=== PATIENT | female | born 2000 | race Caucasian/White ===

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

== ENCOUNTER 2020-01-28 11:41 | Emergency (ER) | payer BC ==
--- NOTE | 2020-01-28 11:54 | ED ---
Headache HPI - General Chief Complaint: Headache Stated Complaint: headache Time Seen by Provider: 01/28/20 11:51 Mode of arrival: ambulatory Limitations: no limitations - History of Present Illness Initial Comments: 19-year-old female history of headaches presenting to the emergency room with a chief complaint of headache. Patient states about 4 months ago she fell, and injured her head and suffering loss of consciousness during the incident. Patient states ever since she has been having intermittent migraine headaches. Although, for the past week states that it has been constant. Reports the pain is located in bilateral temples without any radiation. She does report photophobia but denies an nausea or vomiting. Denies any visual disturbances, chest pain, shortness of breath, one-sided weakness or paresthesias. She states the pain is currently about a 6 and not the worst headache of her life. This was a gradual onset headache. States that she went to Dr. Castillo's office this morning and she was advised to go to the emergency department for evaluation. - Related Data Home Medications Medication Instructions Recorded Confirmed Butalb/APAP/Caff 50-325-40Mg 1 tab PO DAILY PRN 01/28/20 01/28/20 [Fioricet 50-325-40] Fluticasone Nasal [place] [Flonase 1 spr EA NOSTRIL DAILY PRN 01/28/20 01/28/20 Nasal [place]] LORazepam [Ativan] 0.5 mg PO BID 01/28/20 01/28/20 Levomilnacipran HCl [Fetzima] 40 mg PO DAILY 01/28/20 01/28/20 Allergies Allergy/AdvReac Type Severity Reaction Status Date / Time No Known Allergies Allergy Verified 01/28/20 12:49 Review of Systems ROS Statement: Those systems with pertinent positive or pertinent negative responses have been documented in the HPI. ROS Other: All systems not noted in ROS Statement are negative. Past Medical History Past Medical History: Deep Vein Thrombosis (DVT) Additional Past Medical History / Comment(s): PE 2018 History of Any Multi-Drug Resistant Organisms: None Reported Past Surgical History: Adenoidectomy, Ear Surgery, Tonsillectomy Past Psychological History: Anxiety, Bipolar, Depression Smoking Status: Never smoker Past Alcohol Use History: Occasional Past Drug Use History: Marijuana General Exam Limitations: no limitations General appearance: alert, in no apparent distress Head exam: Present: atraumatic, normocephalic, normal inspection Eye exam: Present: normal appearance, PERRL, EOMI Pupils: Present: normal accommodation ENT exam: Present: normal exam, normal oropharynx, mucous membranes moist, TM's normal bilaterally, normal external ear exam Neck exam: Present: normal inspection, full ROM. Absent: tenderness Respiratory exam: Present: normal lung sounds bilaterally. Absent: respiratory distress, wheezes, rales Cardiovascular Exam: Present: regular rate, normal rhythm, normal heart sounds. Absent: systolic murmur, diastolic murmur GI/Abdominal exam: Present: soft. Absent: distended, tenderness, guarding, rebound Extremities exam: Present: normal inspection, full ROM, normal capillary refill. Absent: tenderness, pedal edema, joint swelling, calf tenderness Back exam: Present: normal inspection, full ROM. Absent: tenderness, CVA tenderness (R), CVA tenderness (L) Neurological exam: Present: alert, oriented X3, CN II-XII intact, normal gait Psychiatric exam: Present: normal affect, normal mood Skin exam: Present: warm, dry, intact, normal color Course Vital Signs 01/28/20 11:42 Temperature 98.2 F Pulse Rate 107 H Respiratory 18 Rate Blood Pressure 135/95 O2 Sat by Pulse 99 Oximetry Medical Decision Making - Medical Decision Making 19-year-old female presenting to emergency Department with a chief complaint of a headache. On physical examination, patient is neurologically intact. No focal neural deficits. CBC CMP unremarkable. Patient is not . CT of the brain reveals no signs of acute fracture or dislocations, intracranial hemorrhage or any space-occupying lesions. There is a low-lying cerebellar tonsils, cannot exclude underlying Chiari type I malformation. Nonemergent MRI for follow-up advised. I gave the patient to contact for neurology follow-up. Strict return parameters were thoroughly discussed with patient is an attending agreeable. Case discussed with physician. - Lab Data Result diagrams: 01/28/20 12:21 01/28/20 12: Lab Results 01/28/20 01/28/20 01/28/20 Range/Units 12:21 12:21 12:21 WBC 10.1 (4.0-11.0) k/uL RBC 4.99 (3.80-5.40) m/uL Hgb 15.8 (11.4-16.0) gm/dL Hct 46.1 H (34.0-46.0) % MCV 92.4 (80.0-100.0) fL MCH 31.6 (25.0-35.0) pg MCHC 34.2 (31.0-37.0) g/dL RDW 12.6 (11.5-15.5) % Plt Count 255 (150-450) k/uL MPV 7.2 Neutrophils % 54 % Lymphocytes % 31 % Monocytes % 3 % Eosinophils % 11 % Basophils % 1 % Neutrophils # 5.4 (1.3-7.7) k/uL Lymphocytes # 3.1 (1.0-4.8) k/uL Monocytes # 0.3 (0-1.0) k/uL Eosinophils # 1.1 H (0-0.7) k/uL Basophils # 0.1 (0-0.2) k/uL Sodium 137 (137-145) mmol/L Potassium 4.1 (3.5-5.1) mmol/L Chloride 104 (98-107) mmol/L Carbon Dioxide 29 (22-30) mmol/L Anion Gap 4 mmol/L BUN 16 (7-17) mg/dL Creatinine 0.68 (0.52-1.04) mg/dL Est GFR (CKD-EPI)AfAm >90 (>60 ml/min/1.73 sqM) Est GFR (CKD-EPI)NonAf >90 (>60 ml/min/1.73 sqM) Glucose 93 (74-99) mg/dL Calcium 9.3 (8.4-10.2) mg/dL Total Bilirubin 0.7 (0.2-1.3) mg/dL AST 21 (14-36) U/L ALT 19 (4-34) U/L Alkaline Phosphatase 51 (38-126) U/L Total Protein 6.8 (6.3-8.2) g/dL Albumin 4.2 (3.5-5.0) g/dL Urine HCG, Qual Not Detected (Not Detectd) Disposition Clinical Impression: Headache Disposition: HOME SELF-CARE Condition: Stable Instructions (If sedation given, give patient instructions): Acute Headache (ED) Additional Instructions: Follow-up with a neurologist. Return to emergency department if symptoms worsen. Is patient prescribed a controlled substance at d/c from ED?: No Referrals: Moncho Castillo MD [Primary Care Provider] - 1-2 days Sajan De Guzman MD [STAFF PHYSICIAN] - 1-2 days Time of Disposition: 13:39
[2020-01-28] MEDS ORDERED: KETOROLAC 15 MG/ML 1 ML VIAL IVP STA (12:13)
[2020-01-28] MEDS ORDERED: SODIUM CHLORIDE 0.9% 500 ML 500 ML IV STA (12:13)
[2020-01-28 12:40] LABS: Basophils # (A) 0.1 k/uL (0-0.2); Basophils % (A) 1 %; Eosinophils # (A) 1.1 k/uL (0-0.7); Eosinophils % (A) 11 %; HCT 46.1 % (34.0-46.0); HGB 15.8 gm/dL (11.4-16.0); Lymphocytes # (A) 3.1 k/uL (1.0-4.8); Lymphocytes % (A) 31 %; MCH 31.6 pg (25.0-35.0); MCHC 34.2 g/dL (31.0-37.0); MCV 92.4 fL (80.0-100.0); Mean Platelet Volume 7.2; Monocytes # (A) 0.3 k/uL (0-1.0); Monocytes % (A) 3 %; Neutrophils # (A) 5.4 k/uL (1.3-7.7); Neutrophils % (A) 54 %; Platelet Count 255 k/uL (150-450); RBC 4.99 m/uL (3.80-5.40); RDW 12.6 % (11.5-15.5); WBC 10.1 k/uL (4.0-11.0)
[2020-01-28 12:49] LABS: ALT 19 U/L (4-34); AST 21 U/L (14-36); African American GFR (CKD) >90 (>60 ml/min/1.73 sqM); Albumin 4.2 g/dL (3.5-5.0); Alkaline Phosphatase 51 U/L (38-126); Anion Gap 4 mmol/L; Blood Urea Nitrogen 16 mg/dL (7-17); Calcium 9.3 mg/dL (8.4-10.2); Carbon Dioxide 29 mmol/L (22-30); Chloride 104 mmol/L (98-107); Glucose 93 mg/dL (74-99); Non-African American GFR(CKD) >90 (>60 ml/min/1.73 sqM); Potassium 4.1 mmol/L (3.5-5.1); Sodium 137 mmol/L (137-145); Total Bilirubin 0.7 mg/dL (0.2-1.3); Total Protein 6.8 g/dL (6.3-8.2)
--- NOTE | 2020-01-28 13:34 | CT ---
EXAMINATION TYPE: CT brain alejandroine wo con DATE OF EXAM: 01/28/2020 COMPARISON: NONE HISTORY: Fall, head injury and neck pain. CT DLP: 1032.2 mGycm. Automated Exposure Control for Dose Reduction was Utilized. TECHNIQUE: CT scan of the head and cervical spine are performed without contrast. FINDINGS: There is no acute intracranial hemorrhage or midline shift identified. The ventricles an d sulci are within normal limits in size. May-white matter differentiation is maintained. Partial vi sualization of low-lying cerebellar tonsils. The calvarium is intact. The globes are intact and the v isualized sinuses are clear. Cervical spine is visualized in its entirety from C1 through upper thoracic levels and demonstrates s traightened alignment without evidence of acute fracture or dislocation. Prevertebral soft tissue ap pears within normal limits. The C1-C2 articulation is within normal limits on the coronal images. V ertebral body heights and disc space heights are maintained. Spinal canal is preserved. Thyroid gland is within normal limits. Lung apices are clear. Low-lying cerebellar tonsils seen better on brain CT . IMPRESSION: 1. There is no acute fracture or dislocation evident in the cervical spine. 2. No acute intracranial hemorrhage or midline shift is seen. Low-lying cerebellar tonsils, cannot exclude underlying Chiari type I malformation. Nonemergent MRI f ollow-up is advised.
[2020-01-28 14:03] VITALS: BP 121/74; PULSE 78; RESP 16; TEMP 97.8
== END 2020-01-28 14:02 | disposition home or self-care (01) ==
LOC: EC 11:41
DX: R51.9 Headache, unspecified (principal); F41.9 Anxiety disorder, unspecified; F31.9 Bipolar disorder, unspecified; Z79.899 Other long term (current) drug therapy; Z90.89 Acquired absence of other organs
CPT/HCPCS: 36415; 80053; 85025; 81025; 72125; 70450; 99284; 96374; 96361; J1885

== ENCOUNTER → 2020-02-22 | Outpatient (CLI) | payer BC ==
--- NOTE | 2020-02-22 15:31 | XR ---
EXAMINATION TYPE: XR chest 2V DATE OF EXAM: 02/22/2020 COMPARISON: Chest x-ray October 19, 2019 HISTORY: Cough and congestion. Acute bronchitis. TECHNIQUE: Frontal and lateral views of the chest are obtained. FINDINGS: There is no focal air space opacity, pleural effusion, or pneumothorax seen. The cardiac silhouette size is within normal limits. The osseous structures are intact. IMPRESSION: No acute pulmonary process. No significant change from prior.
== END | disposition home or self-care (01) ==
LOC: RADXRMAIN 15:07
PROVIDERS: ATTEND Nurse Practitioner
DX: J20.9 Acute bronchitis, unspecified (principal)
CPT/HCPCS: 71046

== ENCOUNTER 2020-06-14 00:11 | Emergency (ER) | payer BC ==
[2020-06-14 00:18] VITALS: TEMP 97.7
[2020-06-14] MEDS ORDERED: SODIUM CHLORIDE 0.9% 1,000 ML IV ONE (00:34)
--- NOTE | 2020-06-14 00:43 | ED ---
Syncope HPI - General Chief Complaint: Syncope Stated Complaint: syncope Time Seen by Provider: 06/14/20 00:13 Source: patient, EMS Mode of arrival: EMS Limitations: no limitations - History of Present Illness Initial Comments: This patient is a 19-year-old woman brought to be evaluated after she had a brief episode of passing out. Patient had been with friends. She did have a small amount to drink. She also had smoked some marijuana and then she briefly passed out, estimated be seconds to a minute. Patient did have lost urinary continence but no tonic-clonic activity reported. It does not sound as if there was a postictal episode. Patient states she feels back to baseline now. She did have some brief lightheadedness just prior. MD Complaint: loss of consciousness -: minutes(s) Prodromal Symptoms: lightheaded Description of Event: incontinence -: second(s) Witnessed: yes - by bystander Injuries Sustained Associated with Event: None Current Symptoms: none Context: alcohol use, illicit drug use Treatments Prior to Arrival: none - Related Data Home Medications Medication Instructions Recorded Confirmed Butalb/APAP/Caff 50-325-40Mg 1 tab PO DAILY PRN 01/28/20 01/28/20 [Fioricet 50-325-40] Fluticasone Nasal [place] [Flonase 1 spr EA NOSTRIL DAILY PRN 01/28/20 01/28/20 Nasal [place]] LORazepam [Ativan] 0.5 mg PO BID 01/28/20 01/28/20 Levomilnacipran HCl [Fetzima] 40 mg PO DAILY 01/28/20 01/28/20 Previous Rx's Medication Instructions Recorded Sulfamethox-Tmp 800-160Mg [Bactrim 1 each PO Q12HR #6 tab 06/14/20 Ds] Allergies Allergy/AdvReac Type Severity Reaction Status Date / Time No Known Allergies Allergy Verified 01/28/20 12:49 Review of Systems ROS Statement: Those systems with pertinent positive or pertinent negative responses have been documented in the HPI. ROS Other: All systems not noted in ROS Statement are negative. Constitutional: Denies: fever, chills Eyes: Denies: vision change Respiratory: Denies: cough, dyspnea, wheezes Cardiovascular: Reports: syncope. Denies: chest pain, palpitations, orthopnea, edema Gastrointestinal: Denies: abdominal pain, nausea, vomiting, diarrhea Genitourinary: Denies: dysuria, frequency, hematuria Musculoskeletal: Denies: back pain Skin: Denies: rash Neurological: Denies: headache, weakness, numbness, paresthesias, confusion Past Medical History Past Medical History: Deep Vein Thrombosis (DVT) Additional Past Medical History / Comment(s): PE 2017 History of Any Multi-Drug Resistant Organisms: None Reported Past Surgical History: Adenoidectomy, Ear Surgery, Tonsillectomy Past Psychological History: Anxiety, Bipolar, Depression Smoking Status: Never smoker Past Alcohol Use History: Occasional Past Drug Use History: Marijuana General Exam Limitations: no limitations General appearance: alert, in no apparent distress Head exam: Present: atraumatic, normocephalic Eye exam: Present: normal appearance. Absent: scleral icterus, conjunctival injection ENT exam: Present: normal oropharynx Neck exam: Present: normal inspection Respiratory exam: Present: normal lung sounds bilaterally. Absent: respiratory distress, wheezes, rales, rhonchi, stridor Cardiovascular Exam: Present: regular rate, normal rhythm, normal heart sounds. Absent: systolic murmur, diastolic murmur, rubs, gallop GI/Abdominal exam: Present: soft. Absent: distended, tenderness, guarding, rebound, rigid, mass Extremities exam: Present: normal inspection, normal capillary refill. Absent: pedal edema, calf tenderness Back exam: Present: normal inspection. Absent: CVA tenderness (R), CVA tenderness (L) Neurological exam: Present: alert, oriented X3, CN II-XII intact. Absent: motor sensory deficit Skin exam: Present: warm, dry, intact, normal color. Absent: rash Course Vital Signs 06/14/20 06/14/20 00:12 02:17 Temperature 97.7 F Pulse Rate 106 H 77 Respiratory 16 18 Rate Blood Pressure 130/74 112/71 O2 Sat by Pulse 100 98 Oximetry EKG Findings - EKG Results: EKG: interpreted by ERMD, sinus rhythm, normal axis, normal QRS, normal ST/T EKG shows: tachycardia (rate 105) Medical Decision Making - Lab Data Result diagrams: 06/14/20 00:48 06/14/20 00:48 Lab Results 06/14/20 06/14/20 06/14/20 Range/Units 00:48 00:48 00:48 WBC 9.5 (4.0-11.0) k/uL RBC 4.50 (3.80-5.40) m/uL Hgb 14.8 (11.4-16.0) gm/dL Hct 41.3 (34.0-46.0) % MCV 91.7 (80.0-100.0) fL MCH 32.8 (25.0-35.0) pg MCHC 35.8 (31.0-37.0) g/dL RDW 12.2 (11.5-15.5) % Plt Count 202 (150-450) k/uL MPV 7.9 Neutrophils % 63 % Lymphocytes % 28 % Monocytes % 3 % Eosinophils % 4 % Basophils % 1 % Neutrophils # 6.0 (1.3-7.7) k/uL Lymphocytes # 2.7 (1.0-4.8) k/uL Monocytes # 0.3 (0-1.0) k/uL Eosinophils # 0.3 (0-0.7) k/uL Basophils # 0.0 (0-0.2) k/uL D-Dimer <0.17 (<0.60) mg/L FEU Sodium 139 (137-145) mmol/L Potassium 3.9 (3.5-5.1) mmol/L Chloride 108 H (98-107) mmol/L Carbon Dioxide 23 (22-30) mmol/L Anion Gap 8 mmol/L BUN 16 (7-17) mg/dL Creatinine 0.80 (0.52-1.04) mg/dL Est GFR (CKD-EPI)AfAm >90 (>60 ml/min/1.73 sqM) Est GFR (CKD-EPI)NonAf >90 (>60 ml/min/1.73 sqM) Glucose 92 (74-99) mg/dL Calcium 10.0 (8.4-10.2) mg/dL Total Bilirubin 0.7 (0.2-1.3) mg/dL AST 19 (14-36) U/L ALT 16 (4-34) U/L Alkaline Phosphatase 51 (38-126) U/L Troponin I (0.000-0.034) ng/mL Total Protein 6.8 (6.3-8.2) g/dL Albumin 4.3 (3.5-5.0) g/dL Urine Color Urine Appearance (Clear) Urine pH (5.0-8.0) Ur Specific [place] (1.001-1.035) Urine Protein (Negative) Urine Glucose (UA) (Negative) Urine Ketones (Negative) Urine Blood (Negative) Urine Nitrite (Negative) Urine Bilirubin (Negative) Urine Urobilinogen (<2.0) mg/dL Ur Leukocyte Esterase (Negative) Urine RBC (0-5) /hpf Urine WBC (0-5) /hpf Urine WBC Clumps (None) /hpf Ur Squamous Epith Cells (0-4) /hpf Urine Bacteria (None) /hpf Urine Mucus (None) /hpf Urine HCG, Qual (Not Detectd) 06/14/20 06/14/20 06/14/20 Range/Units 00:48 01:18 01:18 WBC (4.0-11.0) k/uL RBC (3.80-5.40) m/uL Hgb (11.4-16.0) gm/dL Hct (34.0-46.0) % MCV (80.0-100.0) fL MCH (25.0-35.0) pg MCHC (31.0-37.0) g/dL RDW (11.5-15.5) % Plt Count (150-450) k/uL MPV Neutrophils % % Lymphocytes % % Monocytes % % Eosinophils % % Basophils % % Neutrophils # (1.3-7.7) k/uL Lymphocytes # (1.0-4.8) k/uL Monocytes # (0-1.0) k/uL Eosinophils # (0-0.7) k/uL Basophils # (0-0.2) k/uL D-Dimer (<0.60) mg/L FEU Sodium (137-145) mmol/L Potassium (3.5-5.1) mmol/L Chloride (98-107) mmol/L Carbon Dioxide (22-30) mmol/L Anion Gap mmol/L BUN (7-17) mg/dL Creatinine (0.52-1.04) mg/dL Est GFR (CKD-EPI)AfAm (>60 ml/min/1.73 sqM) Est GFR (CKD-EPI)NonAf (>60 ml/min/1.73 sqM) Glucose (74-99) mg/dL Calcium (8.4-10.2) mg/dL Total Bilirubin (0.2-1.3) mg/dL AST (14-36) U/L ALT (4-34) U/L Alkaline Phosphatase (38-126) U/L Troponin I <0.012 (0.000-0.034) ng/mL Total Protein (6.3-8.2) g/dL Albumin (3.5-5.0) g/dL Urine Color Light Yellow Urine Appearance Cloudy H (Clear) Urine pH 7.0 (5.0-8.0) Ur Specific [place] 1.006 (1.001-1.035) Urine Protein Negative (Negative) Urine Glucose (UA) Negative (Negative) Urine Ketones Trace H (Negative) Urine Blood Negative (Negative) Urine Nitrite Negative (Negative) Urine Bilirubin Negative (Negative) Urine Urobilinogen <2.0 (<2.0) mg/dL Ur Leukocyte Esterase Large H (Negative) Urine RBC 3 (0-5) /hpf Urine WBC 76 H (0-5) /hpf Urine WBC Clumps Few H (None) /hpf Ur Squamous Epith Cells 10 H (0-4) /hpf Urine Bacteria Rare H (None) /hpf Urine Mucus Rare H (None) /hpf Urine HCG, Qual Not Detected (Not Detectd) Disposition Clinical Impression: Syncope, Urinary tract infection Disposition: HOME SELF-CARE Condition: Good Instructions (If sedation given, give patient instructions): Urinary Tract Infection in Women (ED), Syncope (ED) Prescriptions: Sulfamethox-Tmp 800-160Mg [Bactrim Ds] 1 each PO Q12HR #6 tab Is patient prescribed a controlled substance at d/c from ED?: No Referrals: Moncho Castillo MD [Primary Care Provider] - 1-2 days
--- NOTE | 2020-06-14 01:05 | XR ---
EXAM: XR Chest, 1 View CLINICAL HISTORY: ITS.REASON XR Reason: syncope TECHNIQUE: Frontal view of the chest. COMPARISON: 02/22/2020 FINDINGS: Lungs: Unremarkable. No consolidation. Pleural space: Unremarkable. No pneumothorax. Heart: Unremarkable. No cardiomegaly. Mediastinum: Unremarkable. Bones/joints: Unremarkable. IMPRESSION: No evidence of acute cardiopulmonary disease.
[2020-06-14 01:09] LABS: Basophils % (A) 1 %; Eosinophils # (A) 0.3 k/uL (0-0.7); Eosinophils % (A) 4 %; HCT 41.3 % (34.0-46.0); HGB 14.8 gm/dL (11.4-16.0); Lymphocytes # (A) 2.7 k/uL (1.0-4.8); Lymphocytes % (A) 28 %; MCH 32.8 pg (25.0-35.0); MCHC 35.8 g/dL (31.0-37.0); MCV 91.7 fL (80.0-100.0); Mean Platelet Volume 7.9; Monocytes # (A) 0.3 k/uL (0-1.0); Monocytes % (A) 3 %; Neutrophils % (A) 63 %; Platelet Count 202 k/uL (150-450); RDW 12.2 % (11.5-15.5); WBC 9.5 k/uL (4.0-11.0)
[2020-06-14 01:20] LABS: ALT 16 U/L (4-34); AST 19 U/L (14-36); African American GFR (CKD) >90 (>60 ml/min/1.73 sqM); Albumin 4.3 g/dL (3.5-5.0); Alkaline Phosphatase 51 U/L (38-126); Anion Gap 8 mmol/L; Blood Urea Nitrogen 16 mg/dL (7-17); Carbon Dioxide 23 mmol/L (22-30); Chloride 108 mmol/L (98-107); Glucose 92 mg/dL (74-99); Non-African American GFR(CKD) >90 (>60 ml/min/1.73 sqM); Potassium 3.9 mmol/L (3.5-5.1); Sodium 139 mmol/L (137-145); Total Bilirubin 0.7 mg/dL (0.2-1.3); Total Protein 6.8 g/dL (6.3-8.2)
[2020-06-14 02:00] LABS: Appearance,Urine Cloudy (Clear); Bacteria,Urine Rare /hpf; Bilirubin,Urine Negative (Negative); Blood,Urine Negative (Negative); Color,Urine Light Yellow; Glucose,Urine (UA) Negative (Negative); Ketones,Urine Trace (Negative); Leukocyte Esterase,Urine Large (Negative); Mucus,Urine Rare /hpf; Nitrite,Urine Negative (Negative); Protein,Urine Negative (Negative); RBC,Urine 3 /hpf (0-5); Specific Gravity,Urine 1.006 (1.001-1.035); Squamous Epithelial Cell,Urine 10 /hpf (0-4); Urobilinogen,Urine <2.0 mg/dL (<2.0); WBC,Urine 76 /hpf (0-5)
[2020-06-14] MEDS ORDERED: SULFAMETHOX-TMP 800-160MG 1 EACH TAB PO STA (02:15)
[2020-06-14 02:30] VITALS: RESP 18
[2020-06-14 03:29] VITALS: BP 101/61; PULSE 98
== END 2020-06-14 03:29 | disposition home or self-care (01) ==
LOC: EC 00:11
DX: R55 Syncope and collapse (principal); N39.0 Urinary tract infection, site not specified; R42 Dizziness and giddiness; F41.9 Anxiety disorder, unspecified; F32.9 Major depressive disorder, single episode, unspecified; F12.90 Cannabis use, unspecified, uncomplicated; Z79.899 Other long term (current) drug therapy; Z86.711 Personal history of pulmonary embolism
CPT/HCPCS: 36415; 71045; 80053; 81001; 81025; 84484; 85025; 85379; 93005; 96360; 99284

== ENCOUNTER → 2021-05-16 | Outpatient (CLI) | payer BC ==
[2021-05-16 14:17] LABS: Basophils # (A) 0.04 X 10*3/uL (0.00-0.10); Basophils % (A) 0.6 %; Eosinophils # (A) 0.49 X 10*3/uL (0.04-0.35); Eosinophils % (A) 7.4 %; HGB 13.6 g/dL (12.0-15.0); Immature Grans, Automated 0.2 %; Lymphocytes # (A) 2.13 X 10*3/uL (0.90-5.00); Lymphocytes % (A) 32.2 %; MCH 31.3 pg (27.0-32.0); MCHC 33.2 g/dL (32.0-37.0); MCV 94.3 fL (80.0-97.0); Mean Platelet Volume 10.6 fL (9.5-12.2); Monocytes % (A) 4.5 %; NRBC Per 100 WBC 0 /100 WBCS (0.0-0.0); Neutrophils # (A) 3.65 X 10*3/uL (1.80-7.70); Neutrophils % (A) 55.1 %; Platelet Count 209 X 10*3/uL (140-440); RBC 4.35 X 10*6/uL (4.10-5.20); RDW 12.4 % (11.5-14.5); WBC 6.62 X 10*3/uL (4.50-10.00)
[2021-05-16 15:07] LABS: Erythrocyte Sedimentation Rate 1 mm/Hr (0-20)
[2021-05-16 17:17] LABS: ALT 23 U/L (8-44); AST 17 U/L (13-35); African American GFR (CKD) 127.8 (60.0-200.0); Albumin 4.3 g/dL (3.8-4.9); Albumin/Globulin Ratio 1.99 (1.60-3.17); Alkaline Phosphatase 49 U/L (41-126); Bilirubin, Conjugated <0.20 mg/dL (0.20-0.40); Blood Urea Nitrogen 16.7 mg/dL (9.0-27.0); Globulin 2.1 g/dL (1.6-3.3); Glucose 90 mg/dL (70-110); Non-African American GFR(CKD) 110.3 (60.0-200.0); Total Protein 6.4 g/dL (6.2-8.2); Uric Acid 4.6 mg/dL (2.9-7.7)
[2021-05-16 19:24] LABS: Rheumatoid Factor, Qnt <10 IU/mL (0-15)
[2021-05-16 19:32] LABS: Anti-DNA, DS unit <1.0 IU/mL; DNA Double-Stranded NEGATIVE (NEGATIVE)
== END | disposition home or self-care (01) ==
LOC: LABWHC1 08:53
DX: R53.81 Other malaise (principal); M25.50 Pain in unspecified joint; Z79.899 Other long term (current) drug therapy
CPT/HCPCS: 36415; 80076; 82565; 82947; 83036; 84146; 84443; 84520; 84550; 85025; 85652; 86038; 86225; 86431

== ENCOUNTER 2021-08-26 07:57 | Inpatient (IN) | payer BC ==
[2021-08-26] MEDS ORDERED: SODIUM CHLORIDE 0.9% 500 ML 500 ML IV STA (08:02)
--- NOTE | 2021-08-26 08:15 | ED ---
General Adult HPI - General Source: patient, RN notes reviewed, old records reviewed <Vivek Grijalva - Last Filed: 08/26/21 14:40> <Samantha Cedillo - Last Filed: 08/26/21 18:31> - General Stated complaint: overdose Time Seen by Provider: 08/26/21 08:00 - History of Present Illness Initial comments: This is a 21-year-old female presents emergency Department stating 7:00 this morning she took 30 of her antidepressant medications called Fetzima. Patient states she was trying to kill herself. Patient states then she had some aggressive should talk to her mother brought her mother called EMS and the patient was brought to the emergency department. Patient states she still is feeling suicidal. Patient denies any physical complaints. Patient denies abdominal pain patient denies any chest pain difficult breathing shortness of breath. Patient denies taking any other medications patient denies any alcohol. (Vivek Grijalva) - Related Data Home Medications Medication Instructions Recorded Confirmed ARIPiprazole [Abilify] 5 mg PO DAILY 08/26/21 08/26/21 LORazepam [Ativan] 1 mg PO DAILY 08/26/21 08/26/21 Levomilnacipran HCl [Fetzima] 20 mg PO DAILY 08/26/21 08/26/21 Topiramate [Topamax] 50 mg PO DIRECTED 08/26/21 08/26/21 Allergies Allergy/AdvReac Type Severity Reaction Status Date / Time No Known Allergies Allergy Verified 08/26/21 17:12 Review of Systems ROS Other: All systems not noted in ROS Statement are negative. <Vivek Grijalva - Last Filed: 08/26/21 14:40> ROS Other: All systems not noted in ROS Statement are negative. <Samantha Cedillo - Last Filed: 08/26/21 18:31> ROS Statement: Those systems with pertinent positive or pertinent negative responses have been documented in the HPI. Past Medical History Past Medical History: Deep Vein Thrombosis (DVT) Additional Past Medical History / Comment(s): PE 2018 History of Any Multi-Drug Resistant Organisms: None Reported Past Surgical History: Adenoidectomy, Ear Surgery, Tonsillectomy Past Psychological History: Anxiety, Bipolar, Depression Smoking Status: Never smoker Past Alcohol Use History: Occasional Past Drug Use History: Marijuana <Vivek Grijalva - Last Filed: 08/26/21 14:40> General Exam <Vivek Grijalva - Last Filed: 08/26/21 14:40> - General Exam Comments Initial Comments: GENERAL: Patient is well-developed and well-nourished. Patient is nontoxic and well- hydrated and is in no acute distress. ENT: Neck is soft and supple. No significant lymphadenopathy is noted. Oropharynx is clear. Moist mucous membranes. Neck has full range of motion without eliciting any pain. EYES: The sclera were anicteric and conjunctiva were pink and moist. Extraocular movements were intact and pupils were equal round and reactive to light. Eyelids were unremarkable. PULMONARY: Unlabored respirations. Good breath sounds bilaterally. No audible rales rhonchi or wheezing was noted. CARDIOVASCULAR: There is a regular rate and rhythm without any murmurs gallops or rubs. ABDOMEN: Soft and nontender with normal bowel sounds. SKIN: Skin is clear with no lesions or rashes and otherwise unremarkable. NEUROLOGIC: Patient is alert and oriented x3. Cranial nerves II through XII are grossly intact. Motor and sensory are also intact. Normal speech, volume and content. Symmetrical smile. MUSCULOSKELETAL: Normal extremities with adequate strength and full range of motion. LYMPHATICS: No significant lymphadenopathy is noted PSYCHIATRIC: Patient states she intentionally overdosed to try to commit suicide (Vivek Grijalva) Course Vital Signs 08/26/21 08/26/21 08/26/21 08:00 08:30 09:30 Temperature 98.5 F Pulse Rate 105 H 89 81 Respiratory 18 16 16 Rate Blood Pressure 126/80 107/71 125/83 O2 Sat by Pulse 98 98 98 Oximetry 08/26/21 08/26/21 10:00 10:30 Temperature Pulse Rate 77 75 Respiratory 16 16 Rate Blood Pressure 107/67 118/87 O2 Sat by Pulse 98 98 Oximetry Medical Decision Making - Lab Data Result diagrams: 08/26/21 08:27 08/26/21 08:27 <Vivek Grijalva - Last Filed: 08/26/21 14:40> - Lab Data Result diagrams: 08/26/21 08:27 08/26/21 08:27 <Samantha Cedillo - Last Filed: 08/26/21 18:31> - Medical Decision Making EKG shows a sinus tachycardia at 101 bpm [place] interval 225 QRS is 98 QT interval 04/27/1989 QTC is 397. Patient's EKG shows no ST segment elevation or depression. Dr. Cross will be taking over the care of this patient at 3 PM (Vivek Grijalva) Patient was evaluated by EPS and will be admitted. Patient voluntarily signed herself in. (Samantha Cedillo) - Lab Data Lab Results 08/26/21 08/26/21 08/26/21 Range/Units 08:27 08:27 08:27 WBC 5.7 (3.8-10.6) k/uL RBC 4.70 (3.80-5.40) m/uL Hgb 15.1 (11.4-16.0) gm/dL Hct 43.7 (34.0-46.0) % MCV 93.1 (80.0-100.0) fL MCH 32.1 (25.0-35.0) pg MCHC 34.5 (31.0-37.0) g/dL RDW 12.1 (11.5-15.5) % Plt Count 198 (150-450) k/uL MPV 7.4 Neutrophils % 58 % Lymphocytes % 28 % Monocytes % 4 % Eosinophils % 8 % Basophils % 1 % Neutrophils # 3.3 (1.3-7.7) k/uL Lymphocytes # 1.6 (1.0-4.8) k/uL Monocytes # 0.2 (0-1.0) k/uL Eosinophils # 0.4 (0-0.7) k/uL Basophils # 0.1 (0-0.2) k/uL Sodium (137-145) mmol/L Potassium (3.5-5.1) mmol/L Chloride (98-107) mmol/L Carbon Dioxide (22-30) mmol/L Anion Gap mmol/L BUN (7-17) mg/dL Creatinine (0.52-1.04) mg/dL Est GFR (CKD-EPI)AfAm (>60 ml/min/1.73 sqM) Est GFR (CKD-EPI)NonAf (>60 ml/min/1.73 sqM) Glucose (74-99) mg/dL Calcium (8.4-10.2) mg/dL Total Bilirubin (0.2-1.3) mg/dL AST (14-36) U/L ALT (4-34) U/L Alkaline Phosphatase (38-126) U/L Total Protein (6.3-8.2) g/dL Albumin (3.5-5.0) g/dL Urine HCG, Qual Not Detected (Not Detectd) Salicylates mg/dL Urine Opiates Screen Not Detected (NotDetected) Ur Oxycodone Screen Not Detected (NotDetected) Urine Methadone Screen Not Detected (NotDetected) Ur Propoxyphene Screen Not Detected (NotDetected) Acetaminophen ug/mL Ur Barbiturates Screen Not Detected (NotDetected) U Tricyclic Antidepress Not Detected (NotDetected) Ur Phencyclidine Scrn Not Detected (NotDetected) Ur Amphetamines Screen Not Detected (NotDetected) U Methamphetamines Scrn Not Detected (NotDetected) U Benzodiazepines Scrn Detected H (NotDetected) Urine Cocaine Screen Not Detected (NotDetected) U Marijuana (THC) Screen Detected H (NotDetected) Serum Alcohol mg/dL Coronavirus (PCR) (Not Detectd) 08/26/21 08/26/21 Range/Units 08:27 15:40 WBC (3.8-10.6) k/uL RBC (3.80-5.40) m/uL Hgb (11.4-16.0) gm/dL Hct (34.0-46.0) % MCV (80.0-100.0) fL MCH (25.0-35.0) pg MCHC (31.0-37.0) g/dL RDW (11.5-15.5) % Plt Count (150-450) k/uL MPV Neutrophils % % Lymphocytes % % Monocytes % % Eosinophils % % Basophils % % Neutrophils # (1.3-7.7) k/uL Lymphocytes # (1.0-4.8) k/uL Monocytes # (0-1.0) k/uL Eosinophils # (0-0.7) k/uL Basophils # (0-0.2) k/uL Sodium 141 (137-145) mmol/L Potassium 4.4 (3.5-5.1) mmol/L Chloride 107 (98-107) mmol/L Carbon Dioxide 25 (22-30) mmol/L Anion Gap 9 mmol/L BUN 15 (7-17) mg/dL Creatinine 0.66 (0.52-1.04) mg/dL Est GFR (CKD-EPI)AfAm >90 (>60 ml/min/1.73 sqM) Est GFR (CKD-EPI)NonAf >90 (>60 ml/min/1.73 sqM) Glucose 109 H (74-99) mg/dL Calcium 9.4 (8.4-10.2) mg/dL Total Bilirubin 0.6 (0.2-1.3) mg/dL AST 20 (14-36) U/L ALT 15 (4-34) U/L Alkaline Phosphatase 54 (38-126) U/L Total Protein 7.1 (6.3-8.2) g/dL Albumin 4.3 (3.5-5.0) g/dL Urine HCG, Qual (Not Detectd) Salicylates <1.0 mg/dL Urine Opiates Screen (NotDetected) Ur Oxycodone Screen (NotDetected) Urine Methadone Screen (NotDetected) Ur Propoxyphene Screen (NotDetected) Acetaminophen <10.0 ug/mL Ur Barbiturates Screen (NotDetected) U Tricyclic Antidepress (NotDetected) Ur Phencyclidine Scrn (NotDetected) Ur Amphetamines Screen (NotDetected) U Methamphetamines Scrn (NotDetected) U Benzodiazepines Scrn (NotDetected) Urine Cocaine Screen (NotDetected) U Marijuana (THC) Screen (NotDetected) Serum Alcohol <10 mg/dL Coronavirus (PCR) Not Detected (Not Detectd) Disposition <Vivek Grijalva - Last Filed: 08/26/21 14:40> Is patient prescribed a controlled substance at d/c from ED?: No Time of Disposition: 18:31 <Samantha Cedillo - Last Filed: 08/26/21 18:31> Clinical Impression: Depression, Suicidal behavior Disposition: TRANSFER TO PSYCH HOSP/UNIT Condition: Stable Referrals: None,Stated [REFERRING] - 1-2 days
[2021-08-26] MEDS ORDERED: ACTIVATED CHARCOAL-SORBITOL 50 GM/240 ML BOTTLE PO STA (08:16)
[2021-08-26 08:39] LABS: Basophils # (A) 0.1 k/uL (0-0.2); Basophils % (A) 1 %; Eosinophils # (A) 0.4 k/uL (0-0.7); Eosinophils % (A) 8 %; HCT 43.7 % (34.0-46.0); HGB 15.1 gm/dL (11.4-16.0); Lymphocytes # (A) 1.6 k/uL (1.0-4.8); Lymphocytes % (A) 28 %; MCH 32.1 pg (25.0-35.0); MCHC 34.5 g/dL (31.0-37.0); MCV 93.1 fL (80.0-100.0); Mean Platelet Volume 7.4; Monocytes # (A) 0.2 k/uL (0-1.0); Monocytes % (A) 4 %; Neutrophils # (A) 3.3 k/uL (1.3-7.7); Neutrophils % (A) 58 %; Platelet Count 198 k/uL (150-450); RDW 12.1 % (11.5-15.5); WBC 5.7 k/uL (3.8-10.6)
[2021-08-26 08:50] LABS: ALT 15 U/L (4-34); AST 20 U/L (14-36); Acetaminophen <10.0 ug/mL; African American GFR (CKD) >90 (>60 ml/min/1.73 sqM); Albumin 4.3 g/dL (3.5-5.0); Alcohol <10 mg/dL; Alkaline Phosphatase 54 U/L (38-126); Anion Gap 9 mmol/L; Blood Urea Nitrogen 15 mg/dL (7-17); Calcium 9.4 mg/dL (8.4-10.2); Carbon Dioxide 25 mmol/L (22-30); Chloride 107 mmol/L (98-107); Glucose 109 mg/dL (74-99); Non-African American GFR(CKD) >90 (>60 ml/min/1.73 sqM); Potassium 4.4 mmol/L (3.5-5.1); Salicylate <1.0 mg/dL; Sodium 141 mmol/L (137-145); Total Bilirubin 0.6 mg/dL (0.2-1.3); Total Protein 7.1 g/dL (6.3-8.2)
[2021-08-26 09:07] LABS: Amphetamine Screen,Urine Not Detected (NotDetected); Benzodiazepines Screen,Urine Detected (NotDetected); Cocaine Screen,Urine Not Detected (NotDetected); Methadone Screen, Urine Not Detected (NotDetected); Opiate Screen,Urine Not Detected (NotDetected); Phencyclidine Screen,Urine Not Detected (NotDetected); Tricyclic Antidepressant,Urine Not Detected (NotDetected); Urn Cannabinoid Scrn Detected (NotDetected)
[2021-08-26 09:08] LABS: Barbiturate Screen,Urine Not Detected (NotDetected); Oxycodone Screen, Urine Not Detected (NotDetected)
[2021-08-26] MEDS ORDERED: MAGNESIUM HYDROXIDE 2,400 MG/10 ML CUP PO PRN (21:22)
[2021-08-26] MEDS ORDERED: MAG HYDROX/AL HYDROX/SIMETH 30 ML CUP PO PRN (21:22)
[2021-08-26] MEDS ORDERED: ACETAMINOPHEN TAB 325 MG TAB PO PRN (21:22)
[2021-08-26] MEDS ORDERED: HALOPERIDOL LACTATE 5 MG/ML 1 ML VIAL IM PRN (21:22)
[2021-08-26] MEDS ORDERED: haloperidoL 5 MG TAB PO PRN (21:25)
[2021-08-26] MEDS ORDERED: LORazepam 2 MG/ML INJ IM PRN (21:25)
[2021-08-26] MEDS: LORazepam 1 MG TAB PO PRN (22:29)
[2021-08-27] MEDS: NICOTINE 14MG/24HR PATCH TRANSDERM SCH (08:52)
[2021-08-27] MEDS ORDERED: LEVOMILNACIPRAN HCL 20 MG PO SCH (09:00)
[2021-08-27 10:20] LABS: Appearance,Urine Clear (Clear); Bilirubin,Urine Negative (Negative); Blood,Urine Negative (Negative); Color,Urine Yellow; Glucose,Urine (UA) Negative (Negative); Ketones,Urine Negative (Negative); Leukocyte Esterase,Urine Negative (Negative); Mucus,Urine Few /hpf; Nitrite,Urine Negative (Negative); Protein,Urine 1+ (Negative); Specific Gravity,Urine 1.023 (1.001-1.035); Squamous Epithelial Cell,Urine 3 /hpf (0-4); WBC,Urine 1 /hpf (0-5)
[2021-08-27 12:01] LABS: Basophils # (A) 0.1 k/uL (0-0.2); Basophils % (A) 1 %; Eosinophils # (A) 0.3 k/uL (0-0.7); Eosinophils % (A) 3 %; HCT 44.8 % (34.0-46.0); HGB 14.7 gm/dL (11.4-16.0); Lymphocytes % (A) 27 %; MCH 30.8 pg (25.0-35.0); MCHC 32.9 g/dL (31.0-37.0); MCV 93.6 fL (80.0-100.0); Mean Platelet Volume 7.3; Monocytes # (A) 0.2 k/uL (0-1.0); Monocytes % (A) 3 %; Neutrophils # (A) 4.8 k/uL (1.3-7.7); Neutrophils % (A) 65 %; Platelet Count 201 k/uL (150-450); RBC 4.79 m/uL (3.80-5.40); RDW 12.1 % (11.5-15.5); WBC 7.4 k/uL (3.8-10.6)
[2021-08-27 12:11] LABS: ALT 13 U/L (4-34); AST 21 U/L (14-36); African American GFR (CKD) >90 (>60 ml/min/1.73 sqM); Albumin 4.4 g/dL (3.5-5.0); Alkaline Phosphatase 58 U/L (38-126); Anion Gap 8 mmol/L; Blood Urea Nitrogen 16 mg/dL (7-17); Calcium 9.3 mg/dL (8.4-10.2); Carbon Dioxide 25 mmol/L (22-30); Chloride 106 mmol/L (98-107); Glucose 92 mg/dL (74-99); Non-African American GFR(CKD) >90 (>60 ml/min/1.73 sqM); Potassium 4.8 mmol/L (3.5-5.1); Sodium 139 mmol/L (137-145); Total Bilirubin 0.8 mg/dL (0.2-1.3); Total Protein 7.2 g/dL (6.3-8.2)
[2021-08-27] MEDS ORDERED: VENLAFAXINE HCL ER 37.5 MG CAP PO STA (14:07)
[2021-08-27] MEDS: ARIPiprazole 5 MG TAB PO SCH (14:31)
[2021-08-27] MEDS ORDERED: LORazepam 0.5 MG TAB PO PRN (14:32)
--- NOTE | 2021-08-27 14:34 | P.HP ---
Psychiatric H&P - . H&P Date: 08/27/21 History & Physical: IDENTIFYING DATA: Patient is a 21 year old female with history of anxiety, depression, and history of multiple suicide attempts by overdose. HPI: Patient presented to the hospital after overdosing on Fetzima (30 tablets) as suicide attempt with clear expectation of . She reports she regrets her suicide attempt, reports it was impulsive after getting into an argument with her mother that morning (Mom called her "annoy ing"), and that triggered her (because a step-mother would also called her names in the past). Per petition completed by her mother, Rupa texted her mother "that she took 30 pills in an attempt to kill herself". Per chart, the pills were Fetzima (antidepressant). She admits to feeling "sad a lot" of the time, and has trouble with her racing thoughts. She reports good sleep, normal appetite. She reports good concentration. She denies feelings of guilt. She endorses anxiety that she rates as a 7/10. She reports worrying about many things for the future, family members, money, physical appearance. Worrying is difficult to control, makes her feel restless, keyed/on edge/irrtable, easily fatigued. 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 Patient denies any suicidal or homicidal ideations intent or plan. She denies any thoughts of self-harm, and reports the last time she cut herself was 3 years or more. Patient denies any auditory or visual hallucinations. Patient denies any flight of ideas, and increased in goal directed behavior. Patient admits to using marijuana daily, "alot" all through out the day. She is precontemplative, not interested in cutting down. She has been on the Fetzima for a couple years. She was previously on 40 mg daily but had side effects so the dose was decreased to 20 mg daily, and she feels this dose is ineffective. PAST PSYCHIATRIC HISTORY: Per records, patient has a history of self-harm by cutting as a teenager. Patient has been diagnosed with depression, anxiety. Past psychiatric medications: Prozac, Zoloft, Abilify, Doxepin, Xanax, Fetzima, Topamax, Ativan, [place], Nardil, Benadryl. Previous psychiatric hospitalizations: Reports this is the 8th hospitalization for her. Prior [facility] x 2, [facility] x 1, [facility] x 1, [facility] x 2, [place] x 2 Psychiatric outpatient follow-up: previously with [facility] as a teenager; currently linked with Dr. Gillespie in [place], [place]. Has a counselor at [facility]. History of suicide attempts in the past: Reports this is the 7th suicide attempt: Past overdose on ibuprofen at 12 years old, overdose on Xanax at 15 years old, overdose on Doxepin at 16 years old, overdose on Xanax at 16 years old, and a couple others. PMH: Adenoidectomy, Ear Surgery, Tonsillectomy ALLERGIES: as per EMR CHEMICAL DEPENDENCY HISTORY: Smokes "alot" of marijuana daily. She denies alcohol use. She denies tobacco or other illicit drug use. FAMILY PSYCHIATRIC/SUBSTANCE USE HISTORY: Father - depression (Effexor) SOCIAL HISTORY: Patient was born and raised in [place], [place]. Parents when she was months old. Father remarried and to a step-mother who was verbally abusive to her. Mother remarried, good relationship with step-father. Lives with mother, step-father and half-sister; reports they normally get along. Has 1 half-sister, 1 step-sister, 2 step-brothers, 2 half-brothers. 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 MENTAL STATUS EXAM: General Appearance: Patient appears to be stated age, dressed in clean stylish leggings and top, adequate hygiene. Orientation: She is alert, oriented to person, place, time and situation. Behavior: Patient is seated without any agitated behavior. Speech: Patient's speech is fluent and nonpressured. Mood/Affect: Patient reports their mood is "good", affect is slightly depressed. Suicidality/Homicidality: Patient denies having any homicidal ideation intent or plan. Denies any suicidal ideations intent or plan. Perceptions: Patient denies any visual hallucinations and denies any auditory hallucinations. Though content/process: There is no evidence of any delusional thought content and thought process is linear and goal-directed. Memory and concentration: Grossly intact for the purposes of this session. Can spell "WORLD" backwards Judgment and insight: Fair STRENGTHS/WEAKNESSES: Strength is that patient is resilient. Weakness is that patient is impulsive and easily irritated. INTELLECT: Average IMPRESSIONS: Major depressive disorder, recurrent, mild Generalized anxiety disorder Rule out social anxiety Cannabis use disorder PLAN: -Patient is admitted under involuntary status to MHU for stabilization of psychiatric symptoms and safety. Patient has signed adult voluntary form and medication consent and is placed in patient's chart. -Medications: Discontinue Fetzima due to lack of benefit and side effects at higher dose. Discontinue Ativan 1 mg daily due to the risk of dependence. Will start Ativan 0.5 mg daily PRN for severe anxiety only, not intended for salvage determiner use. Continue Abilify at 5 mg daily for augmentation. Start Effexor XR 37.5 mg x 1 today for depression/anxiety. Increase Effexor XR to 75 mg daily in the morning for depression/anxiety starting tomorrow AM. -Ativan and Haldol PRN for agitation/aggression -Patient was counseled on substance abuse and desired to cut back on use. -Patient was informed of the risks, benefits and side effects of the medication and patient verbally consented to taking the medications. Patient signed med consent form and was placed in chart. -Internal Medicine consult to perform medical evaluation and physical. -NRT - nonsmoker. - on board for discharge planning. Encourage patient to participate in groups to work on coping skills. [] Allergies Allergy/AdvReac Type Severity Reaction Status Date / Time No Known Allergies Allergy Verified 08/27/21 10:31 Vital Signs Temp 98.2 F 08/27/21 07:24 Pulse 92 08/27/21 07:24 Resp 16 08/27/21 07:24 BP 106/72 08/27/21 07:24 Pulse Ox 98 08/26/21 21:27 FiO2 Intake & Output 08/26/21 08/27/21 08/27/21 18:59 06:59 18:59 Weight 58.967 kg 58.967 kg Laboratory Last Values WBC 7.4 k/uL (3.8-10.6) 08/27/21 11:40 RBC 4.79 m/uL (3.80-5.40) 08/27/21 11:40 Hgb 14.7 gm/dL (11.4-16.0) 08/27/21 11:40 Hct 44.8 % (34.0-46.0) 08/27/21 11:40 MCV 93.6 fL (80.0-100.0) 08/27/21 11:40 MCH 30.8 pg (25.0-35.0) 08/27/21 11:40 MCHC 32.9 g/dL (31.0-37.0) 08/27/21 11:40 RDW 12.1 % (11.5-15.5) 08/27/21 11:40 Plt Count 201 k/uL (150-450) 08/27/21 11:40 MPV 7.3 08/27/21 11:40 Neutrophils % 65 % 08/27/21 11:40 Lymphocytes % 27 % 08/27/21 11:40 Monocytes % 3 % 08/27/21 11:40 Eosinophils % 3 % 08/27/21 11:40 Basophils % 1 % 08/27/21 11:40 Neutrophils # 4.8 k/uL (1.3-7.7) 08/27/21 11:40 Lymphocytes # 2.0 k/uL (1.0-4.8) 08/27/21 11:40 Monocytes # 0.2 k/uL (0-1.0) 08/27/21 11:40 Eosinophils # 0.3 k/uL (0-0.7) 08/27/21 11:40 Basophils # 0.1 k/uL (0-0.2) 08/27/21 11:40 Sodium 139 mmol/L (137-145) 08/27/21 11:40 Potassium 4.8 mmol/L (3.5-5.1) 08/27/21 11:40 Chloride 106 mmol/L (98-107) 08/27/21 11:40 Carbon Dioxide 25 mmol/L (22-30) 08/27/21 11:40 Anion Gap 8 mmol/L 08/27/21 11:40 BUN 16 mg/dL (7-17) 08/27/21 11:40 Creatinine 0.72 mg/dL (0.52-1.04) 08/27/21 11:40 Est GFR (CKD-EPI)AfAm >90 (>60 ml/min/1.73 sqM) 08/27/21 11:40 Est GFR (CKD-EPI)NonAf >90 (>60 ml/min/1.73 sqM) 08/27/21 11:40 Glucose 92 mg/dL (74-99) 08/27/21 11:40 Calcium 9.3 mg/dL (8.4-10.2) 08/27/21 11:40 Total Bilirubin 0.8 mg/dL (0.2-1.3) 08/27/21 11:40 AST 21 U/L (14-36) 08/27/21 11:40 ALT 13 U/L (4-34) 08/27/21 11:40 Alkaline Phosphatase 58 U/L (38-126) 08/27/21 11:40 Total Protein 7.2 g/dL (6.3-8.2) 08/27/21 11:40 Albumin 4.4 g/dL (3.5-5.0) 08/27/21 11:40 TSH 0.496 mIU/L (0.465-4.680) 08/27/21 11:40 Urine Color Yellow 08/27/21 10:09 Urine Appearance Clear (Clear) 08/27/21 10:09 Urine pH 7.0 (5.0-8.0) 08/27/21 10:09 Ur Specific [place] 1.023 (1.001-1.035) 08/27/21 10:09 Urine Protein 1+ (Negative) H 08/27/21 10:09 Urine Glucose (UA) Negative (Negative) 08/27/21 10:09 Urine Ketones Negative (Negative) 08/27/21 10:09 Urine Blood Negative (Negative) 08/27/21 10:09 Urine Nitrite Negative (Negative) 08/27/21 10:09 Urine Bilirubin Negative (Negative) 08/27/21 10:09 Urine Urobilinogen 2.0 mg/dL (<2.0) 08/27/21 10:09 Ur Leukocyte Esterase Negative (Negative) 08/27/21 10:09 Urine WBC 1 /hpf (0-5) 08/27/21 10:09 Ur Squamous Epith Cells 3 /hpf (0-4) 08/27/21 10:09 Urine Mucus Few /hpf (None) H 08/27/21 10:09 Urine HCG, Qual Not Detected (Not Detectd) 08/27/21 10:09 Salicylates <1.0 mg/dL 08/26/21 08:27 Urine Opiates Screen Not Detected (NotDetected) 08/26/21 08:27 Ur Oxycodone Screen Not Detected (NotDetected) 08/26/21 08:27 Urine Methadone Screen Not Detected (NotDetected) 08/26/21 08:27 Ur Propoxyphene Screen Not Detected (NotDetected) 08/26/21 08:27 Acetaminophen <10.0 ug/mL 08/26/21 08:27 Ur Barbiturates Screen Not Detected (NotDetected) 08/26/21 08:27 U Tricyclic Antidepress Not Detected (NotDetected) 08/26/21 08:27 Ur Phencyclidine Scrn Not Detected (NotDetected) 08/26/21 08:27 Ur Amphetamines Screen Not Detected (NotDetected) 08/26/21 08:27 U Methamphetamines Scrn Not Detected (NotDetected) 08/26/21 08:27 U Benzodiazepines Scrn Detected (NotDetected) H 08/26/21 08:27 Urine Cocaine Screen Not Detected (NotDetected) 08/26/21 08:27 U Marijuana (THC) Screen Detected (NotDetected) H 08/26/21 08:27 Serum Alcohol <10 mg/dL 08/26/21 08:27 Coronavirus (PCR) Not Detected (Not Detectd) 08/26/21 15:40 08/27/21 13:07 08/27/21 14:28
[2021-08-27 17:08] LABS: Chol/HDL Ratio 2.43 Ratio; LDL Cholesterol,Calculated 62.1 mg/dL (0.0-131.0); VLDL Calculation 14.28 mg/dL (5.00-40.00)
[2021-08-27 18:55] LABS: Urine Alcohol Negative (Negative); Urine Barbiturate Negative (Negative); Urine Cocaine Negative (Negative); Urine Methadone Negative (Negative); Urine Opiates Negative (Negative); Urine Phencyclidine Negative (Negative)
--- NOTE | 2021-08-28 00:14 | P.CONS ---
History of Present Illness - History of Present Illness This is a pleasant 21 years old female with no significant past medical history. Was admitted to the mental health unit for signs symptoms of major depression and anxiety. Medical consult was requested for medical management. Patient walking in the hallway normally. She denies any physical complaints. He denies chest pain or dyspnea. No change in urine or bowel habits. No fever. She denies smoking, alcohol but she admits to smoking marijuana and patient was counseled She says she has regular menses, she declined doing serum test understanding benefits explained. Hemodynamically stable. Labs including CBC, BMP and liver enzymes are noted. Urine analysis is negative for serious problem. Urine drug screen is positive for cannabinoids. Review of Systems Review of systems CONSTITUTIONAL: No fever, no malaise, no fatigue. HEENT: No recent visual problems or hearing problems. Denied any sore throat. CARDIOVASCULAR: No orthopnea, PND, no palpitations, no syncope. PULMONARY: No shortness of breath, no cough, no hemoptysis. GASTROINTESTINAL: No diarrhea, no nausea, no vomiting, no abdominal pain. Normoactive bowel sounds. NEUROLOGICAL: No headaches, no weakness, no numbness. HEMATOLOGICAL: Denies any bleeding or petechiae. GENITOURINARY: Denies any burning micturition, frequency, or urgency. MUSCULOSKELETAL/RHEUMATOLOGICAL: Denies any joint pain, swelling, or any muscle pain. ENDOCRINE: Denies any polyuria or polydipsia. Past Medical History Past Medical History: Deep Vein Thrombosis (DVT) Additional Past Medical History / Comment(s): PE 2017 History of Any Multi-Drug Resistant Organisms: None Reported Past Surgical History: Adenoidectomy, Ear Surgery, Tonsillectomy Smoking Status: Never smoker Medications and Allergies Home Medications Medication Instructions Recorded Confirmed Type ARIPiprazole [Abilify] 5 mg PO DAILY 08/26/21 08/27/21 History LORazepam [Ativan] 1 mg PO DAILY 08/26/21 08/27/21 History Levomilnacipran HCl [Fetzima] 20 mg PO DAILY 08/26/21 08/27/21 History Topiramate [Topamax] 50 mg PO DIRECTED 08/26/21 08/27/21 History Allergies Allergy/AdvReac Type Severity Reaction Status Date / Time No Known Allergies Allergy Verified 08/27/21 10:31 Physical Exam Vitals: Vital Signs Temp Pulse Pulse Resp BP BP Pulse Ox 08/27/21 07:24 98.2 F 92 16 106/72 08/26/21 22:42 98.0 F 72 15 107/63 08/26/21 21:27 99 F 72 18 108/63 98 08/26/21 19:00 72 16 107/67 97 08/26/21 18:00 76 16 112/88 98 08/26/21 17:00 98 16 119/80 98 08/26/21 15:20 98 F 110 H 18 112/82 98 08/26/21 15:00 72 16 92/51 97 08/26/21 14:00 78 16 103/63 97 08/26/21 13:00 94 16 88/78 96 08/26/21 12:00 84 16 110/75 97 08/26/21 11:00 75 16 104/69 97 Intake and Output 08/26/21 08/27/21 08/27/21 22:59 06:59 14:59 Other: Weight 58.967 kg GENERAL: The patient is alert and oriented x3, not in any acute distress. Well developed, well nourished. HEENT: Pupils are round and equally reacting to light. EOMI. No scleral icterus. No conjunctival pallor. Normocephalic, atraumatic. No pharyngeal erythema. No thyromegaly. CARDIOVASCULAR: S1 and S2 present. No murmurs, rubs, or gallops. PULMONARY: Chest is clear to auscultation, no wheezing or crackles. ABDOMEN: Soft, nontender, nondistended, normoactive bowel sounds. No palpable organomegaly. MUSCULOSKELETAL: No joint swelling or deformity. EXTREMITIES: No cyanosis, clubbing, or pedal edema. NEUROLOGICAL: Gross neurological examination did not reveal any focal deficits. SKIN: No rashes. no petechiae. Results CBC & Chem 7: 08/27/21 11:40 08/27/21 11:40 Labs: Abnormal Lab Results - Last 24 Hours (Table) 08/27/21 Range/Units 10:09 Urine Protein 1+ H (Negative) Urine Mucus Few H (None) /hpf Assessment and Plan Assessment: -Depression, anxiety and other psychiatric illnesses: Management as per psych primary team -Substance abuse with cannabis, patient counseled We recommend patient follow up with PCP in one week after discharge and she was instructed with the same Thank you for consulting us
[2021-08-28] MEDS ORDERED: ARIPiprazole 5 MG TAB PO SCH (09:00)
[2021-08-28] MEDS: NICOTINE 14MG/24HR PATCH TRANSDERM SCH (09:31)
[2021-08-28] MEDS: ARIPiprazole 5 MG TAB PO SCH (09:31)
[2021-08-28] MEDS: VENLAFAXINE HCL ER 75 MG CAP PO SCH (09:31)
--- NOTE | 2021-08-28 15:44 | P.PN ---
Progress Note - Text Progress Note Date: 08/28/21 Interval History: Patient was seen attending group and was directable and agreeable to speak with screen writer in the office. She reports her mood is "really good" today. She denies anxiety today, denies depressed mood. At this time patient denies any suicidal or homical ideations, intent or plan. Patient denies any auditory, visual hallucinations and denies any paranoia or delusions. She is tolerating the Effexor XR. Patient denies any side effects from the medications and has been compliant with meds. She has an appointment to see her outpatient psychiatrist on Saturday and has a scheduled work shift on , and would like to be discharged before then. Mental Status Exam: General Appearance: Patient appears to be stated age, dressed in clean stylish leggings and top, good hygiene. Orientation: She is alert, oriented to person, place, time and situation. Behavior: Patient is seated without any agitated behavior; is calm and cooperative. Speech: Patient's speech is fluent and nonpressured. Mood/Affect: Patient reports their mood is "good", affect is euthymic. Suicidality/Homicidality: Patient denies having any homicidal ideation intent or plan. Denies any suicidal ideations intent or plan. Perceptions: Patient denies any visual hallucinations and denies any auditory hallucinations. Though content/process: There is no evidence of any delusional thought content and thought process is linear and goal-directed. Judgment and insight: Fair to good IMPRESSIONS: Major depressive disorder, recurrent, mild Generalized anxiety disorder Rule out social anxiety Cannabis use disorder PLAN: -Patient is admitted under involuntary status to [facility]HU for stabilization of psychiatric symptoms and safety. Patient has signed adult voluntary form and medication consent and is placed in patient's chart. -Medications: Continue Abilify at 5 mg daily for augmentation. Effexor XR was increased to 75 mg daily in the morning starting today for depression/anxiety. -Ativan and Haldol PRN for agitation/aggression -Patient was counseled on substance abuse and desired to cut back on use. -NRT - nonsmoker. -SW on board for discharge planning. Encourage patient to participate in groups to work on coping skills. Consider discharge early this week if she continues to stabilize.
[2021-08-28] MEDS: LORazepam 1 MG TAB PO PRN (21:11)
[2021-08-29] MEDS: NICOTINE 14MG/24HR PATCH TRANSDERM SCH (10:02)
[2021-08-29] MEDS: VENLAFAXINE HCL ER 75 MG CAP PO SCH (10:02)
[2021-08-29] MEDS: ARIPiprazole 5 MG TAB PO SCH (10:02)
--- NOTE | 2021-08-29 12:12 | P.PN ---
Progress Note - Text Progress Note Date: 08/29/21 Interval History: Patient was seen attending group and was directable and agreeable to speak with greeting card writer in the office. Currently, the patient is not reporting any suicidal or homicidal ideation, intention, and/or plan. She is not reporting any auditory or visual hallucinations. She is denying any paranoia or other delusions. The patient has been adherent with her medication and is not reporting any significant side effects at this time. We discussed at length the patient's history of multiple medications as well as her history of multiple suicide attempts. The patient was educated on the diagnosis of borderline personality disorder. The patient is in agreement with this diagnosis. We discussed at length appropriate therapy as well as mentalization techniques and working on self-esteem. The patient does not report any chest pain, palpitations, or light headedness. Mental Status Exam: General Appearance: Patient appears to be stated age is alert, directable, and cooperative. Behavior: Patient is calmly seated without any agitated behavior. Speech: Patient's speech is fluent and nonpressured. Mood/Affect: Mood is improving mildly, affect is congruent and constricted. Suicidality/Homicidality: Patient denies having any suicidal or homicidal ideat ion intent or plan. Perceptions: Patient denies any visual hallucinations and denies any auditory hallucinations Though content/process: There is no evidence of any delusional thought content and thought process is linear and goal-directed. Memory and concentration: AOX3, grossly intact for the purposes of this session Judgment and insight: Improving mildly Vital Signs Temp 97.3 F L 08/29/21 06:58 Pulse 143 H 08/29/21 06:58 Resp 18 08/29/21 06:58 BP 119/61 08/29/21 06:58 Pulse Ox 98 08/26/21 21:27 FiO2 Assessment Major depressive disorder, recurrent, mild Generalized anxiety disorder Borderline personality disorder Cannabis use disorder Plan: -Patient continues to meet criteria for inpatient psychiatric admission for symptom stabilization and safety. Patient has signed adult voluntary form and medication consent and was placed in patient's chart. -Medications: Abilify 5 mg by mouth daily for mood augmentation Effexor XR 75 mg by mouth every morning for depression/anxiety -When necessary Ativan and Haldol for agitation/aggression. -SW on board for discharge planning. Encouraged the patient to participate in milieu.
[2021-08-29] MEDS: LORazepam 1 MG TAB PO PRN (21:29)
[2021-08-30 07:26] VITALS: BP 115/60; PULSE 88; RESP 16; TEMP 98.6
[2021-08-30] MEDS: ARIPiprazole 5 MG TAB PO SCH (08:57)
[2021-08-30] MEDS: NICOTINE 14MG/24HR PATCH TRANSDERM SCH (08:57)
[2021-08-30] MEDS: VENLAFAXINE HCL ER 75 MG CAP PO SCH (08:57)
--- NOTE | 2021-08-30 10:53 | P.DS ---
Providers Date of admission: 08/26/21 21:16 Expected date of discharge: 08/30/21 Attending physician: Toney Venegas MD Consults: 08/26/21 21:22 Consult Physician Routine Consulting Provider: Santi Guillermo Consult Reason/Comments: medical management Do you want consulting provider notified?: Yes Primary care physician: Moncho Castillo - Discharge Diagnosis(es) (1) Major depressive disorder, recurrent Current Visit: Yes Status: Acute (2) Generalized anxiety disorder Current Visit: Yes Status: Acute (3) Borderline personality disorder Current Visit: Yes Status: Acute (4) Cannabis use disorder Current Visit: Yes Status: Acute Hospital Course: Admission HPI: Initial psychiatric evaluation was completed by Dr. Stallings on 08/27/2021 who wrote: "Patient is a 21 year old female with history of anxiety, depression, and history of multiple suicide attempts by overdose. HPI: Patient presented to the hospital after overdosing on Fetzima (30 tablets) as suicide attempt with clear expectation of . She reports she regrets her suicide attempt, reports it was impulsive after getting into an argument with her mother that morning (Mom called her "annoying"), and that triggered her (because a step-mother would also called her names in the past). Per petition completed by her mother, Rupa texted her mother "that she took 30 pills in an attempt to kill herself". Per chart, the pills were Fetzima (antidepressant). She admits to feeling "sad a lot" of the time, and has trouble with her racing thoughts. She reports good sleep, normal appetite. She reports good concentration. She denies feelings of guilt. She endorses anxiety that she rates as a 7/10. She reports worrying about many things for the future, family members, money, physical appearance. Worrying is difficult to control, makes her feel restless, keyed/on edge/irrtable, easily fatigued. 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 Patient denies any suicidal or homicidal ideations intent or plan. She denies any thoughts of self-harm, and reports the last time she cut herself was 3 years or more. Patient denies any auditory or visual hallucinations. Patient denies any flight of ideas, and increased in goal directed behavior. Patient admits to using marijuana daily, "alot" all through out the day. She is precontemplative, not interested in cutting down. She has been on the Fetzima for a couple years. She was previously on 40 mg daily but had side effects so the dose was decreased to 20 mg daily, and she feels this dose is ineffective. Per records, patient has a history of self-harm by cutting as a teenager. Patient has been diagnosed with depression, anxiety. Past psychiatric medications: Prozac, Zoloft, Abilify, Doxepin, Xanax, Fetzima, Topamax, Ativan, [place], Nardil, Benadryl. Previous psychiatric hospitalizations: Reports this is the 8th hospitalization for her. Prior [facility] x 2, [facility] x 1, [facility] x 1, [facility] x 2, [place] x 2 Psychiatric outpatient follow-up: previously with [facility] as a teenager; currently linked with Dr. Gillespie in [place], [place]. Has a counselor at [facility]. History of suicide attempts in the past: Reports this is the 7th suicide attempt: Past overdose on ibuprofen at 12 years old, overdose on Xanax at 15 years old, overdose on Doxepin at 16 years old, overdose on Xanax at 16 years old, and a couple others. " Hospital course: Upon admission to the unit patient was initially presenting as nonchalant with a "good mood" and a mildly depressed affect. Patient was however directable and agreeable to commence treatment. Patient got along well with other patients on the unit and followed unit protocol. Patient was compliant with the medications and denied any side effects throughout hospital course. Patient was started on regimen of Abilify and Effexor for management of major depressive disorder. Patient spoke of her stressors and engaged in therapy both group and individual. Patient was also seen by medical team for history and physical exam. Over the course of the hospitalization patient displayed significant gradual progress her target symptoms of suicidal ideation and depression. When evaluated by this provider, we discussed at length the diagnosis of borderline personality disorder. The patient was able to identify with the constellation of symptoms and acknowledged that she may have borderline personality disorder and that would explain why she has been trialed numerous medications with no significant benefit. With this in mind, the patient develop better insight and judgment. On the day of discharge, patient is not reporting any suicidal or homicidal ideation, intention, and/or plan. She is not reporting any auditory or visual hallucinations. She is not reporting any paranoia or other delusions. Patient denies any side effects of her medications and has been tolerating them well. The patient denies any access to firearms or other weapons. The patient was counseled on the points medication insurance and appropriate outpatient follow- up. Furthermore, the patient does have a significant history of cannabis use and was constantly great length all substances including alcohol and marijuana. Prior to discharge, family meeting will be arranged by social insurance specialist to answer questions and ensure safety. Mental status exam: General Appearance: Patient appears to be stated age is alert, pleasant, and cooperative. Patient is in no acute distress and has fair hygiene and grooming Behavior: Patient is calmly seated without any agitated behavior. Speech: Patient's speech is fluent and nonpressured. Mood/Affect: Patient reports their mood is "feeling good to go", affect is congruent and euthymic to bright. Suicidality/Homicidality: Patient denies having any suicidal or homicidal ideation intent or plan. Perceptions: Patient denies any auditory or visual hallucinations. Though content/process: There is no evidence of any delusional thought content and thought process is linear and goal-directed. Patient is more future oriented. Memory and concentration: AOX3, grossly intact for the purposes of this session. Can spell "WORLD" backwards correctly. Judgment and insight: Improved with guarded prognosis Vital Signs Temp 98.6 F 08/30/21 06:49 Pulse 88 08/30/21 06:49 Resp 16 08/30/21 06:49 BP 115/60 08/30/21 06:49 Pulse Ox 98 08/26/21 21:27 FiO2 Laboratory Results WBC 7.4 k/uL (3.8-10.6) 08/27/21 11:40 RBC 4.79 m/uL (3.80-5.40) 08/27/21 11:40 Hgb 14.7 gm/dL (11.4-16.0) 08/27/21 11:40 Hct 44.8 % (34.0-46.0) 08/27/21 11:40 MCV 93.6 fL (80.0-100.0) 08/27/21 11:40 MCH 30.8 pg (25.0-35.0) 08/27/21 11:40 MCHC 32.9 g/dL (31.0-37.0) 08/27/21 11:40 RDW 12.1 % (11.5-15.5) 08/27/21 11:40 Plt Count 201 k/uL (150-450) 08/27/21 11:40 MPV 7.3 08/27/21 11:40 Neutrophils % 65 % 08/27/21 11:40 Lymphocytes % 27 % 08/27/21 11:40 Monocytes % 3 % 08/27/21 11:40 Eosinophils % 3 % 08/27/21 11:40 Basophils % 1 % 08/27/21 11:40 Neutrophils # 4.8 k/uL (1.3-7.7) 08/27/21 11:40 Lymphocytes # 2.0 k/uL (1.0-4.8) 08/27/21 11:40 Monocytes # 0.2 k/uL (0-1.0) 08/27/21 11:40 Eosinophils # 0.3 k/uL (0-0.7) 08/27/21 11:40 Basophils # 0.1 k/uL (0-0.2) 08/27/21 11:40 Sodium 139 mmol/L (137-145) 08/27/21 11:40 Potassium 4.8 mmol/L (3.5-5.1) 08/27/21 11:40 Chloride 106 mmol/L (98-107) 08/27/21 11:40 Carbon Dioxide 25 mmol/L (22-30) 08/27/21 11:40 Anion Gap 8 mmol/L 08/27/21 11:40 BUN 16 mg/dL (7-17) 08/27/21 11:40 Creatinine 0.72 mg/dL (0.52-1.04) 08/27/21 11:40 Est GFR (CKD-EPI)AfAm >90 (>60 ml/min/1.73 sqM) 08/27/21 11:40 Est GFR (CKD-EPI)NonAf >90 (>60 ml/min/1.73 sqM) 08/27/21 11:40 Glucose 92 mg/dL (74-99) 08/27/21 11:[address] Glu mg/dL 102 08/27/21 11:40 Hemoglobin A1c 5.2 % (0.0-6.0) 08/27/21 11:40 Calcium 9.3 mg/dL (8.4-10.2) 08/27/21 11:40 Total Bilirubin 0.8 mg/dL (0.2-1.3) 08/27/21 11:40 AST 21 U/L (14-36) 08/27/21 11:40 ALT 13 U/L (4-34) 08/27/21 11:40 Alkaline Phosphatase 58 U/L (38-126) 08/27/21 11:40 Total Protein 7.2 g/dL (6.3-8.2) 08/27/21 11:40 Albumin 4.4 g/dL (3.5-5.0) 08/27/21 11:40 Triglycerides 71.40 mg/dL (0.00-149.00) 08/27/21 11:40 Cholesterol 130.00 mg/dL (0.00-200.00) 08/27/21 11:40 LDL Cholesterol, Calc 62.1 mg/dL (0.0-131.0) 08/27/21 11:40 VLDL Cholesterol, Calc 14.28 mg/dL (5.00-40.00) 08/27/21 11:40 HDL Cholesterol 53.60 mg/dL (40.00-60.00) 08/27/21 11:40 Cholesterol/HDL Ratio 2.43 Ratio 08/27/21 11:40 TSH 0.496 mIU/L (0.465-4.680) 08/27/21 11:40 Urine Color Yellow 08/27/21 10:09 Urine Appearance Clear (Clear) 08/27/21 10:09 Urine pH 7.0 (5.0-8.0) 08/27/21 10:09 Ur Specific [place] 1.023 (1.001-1.035) 08/27/21 10:09 Urine Protein 1+ (Negative) H 08/27/21 10:09 Urine Glucose (UA) Negative (Negative) 08/27/21 10:09 Urine Ketones Negative (Negative) 08/27/21 10:09 Urine Blood Negative (Negative) 08/27/21 10:09 Urine Nitrite Negative (Negative) 08/27/21 10:09 Urine Bilirubin Negative (Negative) 08/27/21 10:09 Urine Urobilinogen 2.0 mg/dL (<2.0) 08/27/21 10:09 Ur Leukocyte Esterase Negative (Negative) 08/27/21 10:09 Urine WBC 1 /hpf (0-5) 08/27/21 10:09 Ur Squamous Epith Cells 3 /hpf (0-4) 08/27/21 10:09 Urine Mucus Few /hpf (None) H 08/27/21 10:09 Urine HCG, Qual Not Detected (Not Detectd) 08/27/21 10:09 Salicylates <1.0 mg/dL 08/26/21 08:27 Urine Opiates Screen Negative (Negative) 08/27/21 10:09 Ur Oxycodone Screen Not Detected (NotDetected) 08/26/21 08:27 Urine Methadone Screen Negative (Negative) 08/27/21 10:09 Ur Propoxyphene Screen Negative (Negative) 08/27/21 10:09 Acetaminophen <10.0 ug/mL 08/26/21 08:27 Ur Barbiturates Screen Not Detected (NotDetected) 08/26/21 08:27 Urine Barbiturates Negative (Negative) 08/27/21 10:09 U Tricyclic Antidepress Not Detected (NotDetected) 08/26/21 08:27 Ur Phencyclidine Scrn Negative (Negative) 08/27/21 10:09 Ur Amphetamine Screen Negative (Negative) 08/27/21 10:09 Ur Amphetamines Screen Not Detected (NotDetected) 08/26/21 08:27 U Methamphetamines Scrn Not Detected (NotDetected) 08/26/21 08:27 U Benzodiazepines Scrn Negative (Negative) 08/27/21 10:09 Urine Cocaine Screen Negative (Negative) 08/27/21 10:09 U Cannabinoids Screen Positive (Negative) A 08/27/21 10:09 U Marijuana (THC) Screen Detected (NotDetected) H 08/26/21 08:27 Urine Alcohol Negative (Negative) 08/27/21 10:09 Serum Alcohol <10 mg/dL 08/26/21 08:27 Coronavirus (PCR) Not Detected (Not Detectd) 08/26/21 15:40 Allergies Allergy/AdvReac Type Severity Reaction Status Date / Time No Known Allergies Allergy Verified 08/27/21 10:31 Impression: Major depressive disorder, recurrent Generalized anxiety disorder Borderline personality disorder Cannabis use disorder Plan: -Continue with discharge today as patient has improved and stabilized psychiatrically and is not currently an imminent threat to herself and/or others. Patient will remain at elevated risk due to general population due to h er previous attempts at suicide. -Continue medications: Effexor XR 75 mg by mouth daily for depression/anxiety Abilify 5 mg by mouth daily for mood stabilization and augmentation -Patient was counseled on the need for medication compliance and appropriate follow-up at mental health and also primary care for medical issues. Patient verbalized understanding and agreed. -Social work to arrange for and conduct family meeting to ensure safety upon discharge and answer any questions/concerns. Social work also to arrange for patients follow up appointments with Dr. Curz for psychiatric care along with follow up with primary care provider. -Patient counseled on abstaining from recreational drugs and marijuana and alcohol. Was informed/educated on the adverse effects on their physical and mental health. Patient verbally agreed and understood. Patient was offered substance abuse treatment however declined at this time. -Patient was instructed to return to the hospital or seek immediate medical care if their psychiatric or medical symptoms do worsen or reoccur. -Psychoeducation and supportive therapy provided to patient. Risks and benefits of pharmacological treatment versus the risks and benefits of nontreatment weight and discussed. Informed consent discussion held. Common side effects of psychotropics discussed such as, but not limited to headache, GI disturbance, sexual dysfunction, movement disorders, sedation, and orthostatic hypotension. Life threatening and blackbox warnings of prescribed medications also discussed. Potential risks of operating a vehicle or heavy machinery discussed with patient at length. Advised on importance of compliance and a reliable and responsible manner. Patient advised to review FDA consumer labeling of all medications prior to taking. Patient verbalized understanding of potential risks, and agrees with current treatment plan. Patient advised to medically contact physician/emergency personnel if any acute changes in condition occur. Patient Condition at Discharge: Stable Plan - Discharge Summary Discharge Rx Participant: Yes New Discharge Prescriptions: New Venlafaxine HCl ER [Effexor XR] 75 mg PO DAILY 30 Days cap ARIPiprazole [Abilify] 5 mg PO DAILY 30 Days tab Discontinued Topiramate [Topamax] 50 mg PO DIRECTED LORazepam [Ativan] 1 mg PO DAILY ARIPiprazole [Abilify] 5 mg PO DAILY Levomilnacipran HCl [Fetzima] 20 mg PO DAILY Discharge Medication List ARIPiprazole [Abilify] 5 mg PO DAILY 30 Days tab 08/30/21 [Rx] Venlafaxine HCl ER [Effexor XR] 75 mg PO DAILY 30 Days cap 08/30/21 [Rx] Follow up Appointment(s)/Referral(s): Marvin Ross [Outside] - 09/04/21 10:00 am (Moo Kamara ) Nakul Cruz MD [REFERRING] - 08/30/21 1:15 pm None,Stated [REFERRING] - 1-2 days Patient Instructions/Handouts: How to Stop Smoking (DC), Depression (DC) Activity/Diet/Wound Care/Special Instructions: Avoid the use of street drugs and alcohol. Take all prescriptions as pr escribed. When you are in need of refills on your medications, please contact your medical provider and/or outpatient psychiatrist to have this done. Please go to scheduled outpatient appointment for aftercare treatment. If symptoms return or become worse, call the crisis line at and/or go to the nearest emergency room for evaluation. Discharge Disposition: HOME SELF-CARE
== END 2021-08-30 11:05 | disposition home or self-care (01) | DRG 885 ==
LOC: EC 07:57 → SUPCPDRO 07:57 → 3MHU 21:16
PROVIDERS: ADMIT Psychiatry & Neurology Psychiatry; ATTEND Psychiatry & Neurology Psychiatry
DX: F33.0 Major depressive disorder, recurrent, mild (principal); F12.90 Cannabis use, unspecified, uncomplicated; F31.9 Bipolar disorder, unspecified; F41.1 Generalized anxiety disorder; F60.3 Borderline personality disorder; Z79.899 Other long term (current) drug therapy; Z81.8 Family history of other mental and behavioral disorders; Z86.711 Personal history of pulmonary embolism; Z91.51 Personal history of suicidal behavior; Z91.52 Personal history of nonsuicidal self-harm; Z20.822 Contact with and (suspected) exposure to COVID-19
CPT/HCPCS: 36415; 80053; 80061; 80143; 80179; 80306; 80320; 81001; 81025; 82075; 83036; 84443; 85025; 87635; 93005

== ENCOUNTER → 2022-03-16 | Outpatient (CLI) | payer BC | END | disposition home or self-care (01) | LOC: LABWHC1 08:37 | PROVIDERS: ATTEND Psychiatry & Neurology Psychiatry | DX: F33.1 Major depressive disorder, recurrent, moderate (principal); F41.1 Generalized anxiety disorder | CPT/HCPCS: 36415; 80178 ==

== ENCOUNTER → 2024-05-07 | Outpatient (CLI) | payer BC ==
[2024-05-07 14:22] VITALS: BP 117/80; PULSE 80; RESP 16; TEMP 99.2
--- NOTE | 2024-05-07 14:50 | P.SLEEP ---
History of Present Illness DATE: 05/07/2024 CONSULTATION/NEW PATIENT EVALUATION HISTORY OF PRESENT ILLNESS/SLEEP-WAKE EVALUATION: 23-year-old lady had been e valuated in the sleep center for possible obstructive sleep apnea hypopnea syndrome. Patient has history of obstructive sleep apnea diagnosed about 6 years ago, was on treatment with CPAP, but for different reasons stopped using CPAP many years ago SLEEP SCHEDULE: Usually sleep schedule from 8 PM to 3 AM 7 days a week. FALLING ASLEEP: Sometimes patient has difficulties with falling asleep, has TV set in bedroom. DURING SLEEP: Patient sleeps in different positions with snoring and awakenings from sleep several times. No nocturia. No history of hypnogogical hallucinations, sleep paralysis, or cataplexy. DURING THE DAY/WAKE STATE: In the morning patient wake up tired, has problems with memory, depression and anxiety. [place] sleepiness scale is 7. Patient takes nap at 2 PM. PAST MEDICAL HISTORY: Headaches, depression. PAST SURGICAL HISTORY: Tonsillectomy. MEDICATIONS: Have been reviewed, please see below. SOCIAL HISTORY: Please see below. FAMILY HISTORY: Please see below. REVIEW OF SYSTEMS: Loud snoring, multiple awakenings from sleep. No fevers. No double vision. No recent chest pain. No shortness of breath. No abdominal pain. No bleeding episodes. No blood in urine. No seizure episodes. PHYSICAL EXAMINATION: GENERAL: A pleasant patient without any distress. VITAL SIGNS: Please see below, weight 173 pounds, BMI 31.6. HEENT: PERRLA, EOMI. Evaluation of oropharynx showed tongue protrudes midline, low position of soft palate Mallampati 3. NECK: Supple. No JVD. Thyroid is not palpable. 13-1/4 inches in circumference. LUNGS: Clear to percussion and to auscultation. Good air exchange. No wheezing or rhonchi. HEART: S1, S2 regular. No murmurs, gallops or rubs. ABDOMEN: Soft and nontender. Bowel sounds are present. No organomegaly appreciated. EXTREMITIES: No clubbing or cyanosis. EDITOR PUBLICATIONS: Awake, alert, and oriented x3. Cranial nerves 2 to 7 intact. There is no fasciculation or atrophy noted. No focal deficits observed. ASSESSMENT: 1. Loud snoring, awakenings from sleep, history of obstructive sleep apnea in the past, low position of soft palate Mallampati 3. Obstructive sleep apnea hypopnea syndrome. 2. Headaches. 3. Depression. 4. Status post tonsillectomy. PLAN: 1. Polysomnography for evaluation of patient's breathing during sleep. 2. Following plan after reading sleep study 3. Preferable position during sleep on the side. 4. No driving if patient feels any sleepiness. Patient is aware of civil and criminal liability for unsafe driving. 5. Sleep hygiene with regular sleep time for at least 7.5-8 hours. 6. Watching weight. Thank you very much for referring this patient for consultation. Sincerely, Neal Shelton MD, PhD, FAASM. Diplomat of [employer], Sleep Medicine Board by [employer] [employer] National Sales Representative of [facility] [place] cc: Moncho Castillo MD Past Medical History Past Medical History: Deep Vein Thrombosis (DVT) Additional Past Medical History / Comment(s): PE 2018, Headaches History of Any Multi-Drug Resistant Organisms: None Reported Past Surgical History: Adenoidectomy, Ear Surgery, Tonsillectomy Past Anesthesia/Blood Transfusion Reactions: No Reported Reaction Past Psychological History: Anxiety, Bipolar, Depression Smoking Status: Never smoker, Vaper Past Alcohol Use History: Occasional Past Drug Use History: Marijuana - Past Family History Father Family Medical History: Sleep Apnea/CPAP/BIPAP Additional Family Medical History / Comment(s): snoring, mental illness Mother Additional Family Medical History / Comment(s): mental illness Medications and Allergies Home Medications Medication Instructions Recorded Confirmed Type ARIPiprazole [Abilify] 5 mg PO DAILY 30 Days tab 08/30/21 05/07/24 Rx Venlafaxine HCl ER [Effexor XR] 75 mg PO DAILY 30 Days cap 08/30/21 05/07/24 Rx Allergies Allergy/AdvReac Type Severity Reaction Status Date / Time No Known Allergies Allergy Verified 08/27/21 10:31 Physical Exam Vitals: Vital Signs Temp Pulse Resp BP Pulse Ox 05/07/24 14:20 99.2 F 80 16 117/80 100 Intake and Output 05/06/24 05/07/24 05/07/24 22:59 06:59 14:59 Other: Weight 78.471 kg Sleep Note - Sleep Data ESS Total: 7 - Sleep Note Sleep Note: Temperature: 99.2 F Pulse Rate: 80 Respiratory Rate: 16 Blood Pressure: 117/80 SpO2: 100 Height: 5 ft 2 in Weight: 78.471 kg BMI: Neck Circumference: 13.2
== END ==
LOC: 3 N SLEEP 13:49
PROVIDERS: ATTEND Internal Medicine
DX: G47.33 Obstructive sleep apnea (adult) (pediatric) (principal); F32.A Depression, unspecified; Z90.89 Acquired absence of other organs
CPT/HCPCS: 99211